=== PATIENT | male | born 1970 | race American Indian/Alaskan Native ===

== ENCOUNTER 2016-09-16 17:11 | Observation (INO) | payer BC, OTHER ==
[2016-09-16 17:20] VITALS: BMI 23.5
[2016-09-16] MEDS ORDERED: Vancomycin 1gm in NS 250ml 1 GM/250 ML BAG IVPB STA (17:58)
[2016-09-16] MEDS ORDERED: Ampicillin/Sulbactam 3 GM in Sodium Chloride 0.9% 100 ML IVPB STA (17:58)
--- NOTE | 2016-09-16 18:03 | ED PDOC ---
Arrival/HPI - General Historian: Patient - History of Present Illness Time/Duration: < month Symptom Onset: Gradual Symptom Course: Unchanged Severity Level: Mild Activities at Onset: Rest Context: Home <Amy Bob - Last Filed: 09/16/16 19:16> - History of Present Illness Time/Duration: < month Symptom Onset: Gradual Symptom Course: Unchanged Severity Level: Mild Activities at Onset: Rest Context: Home <Ondina Skinner - Last Filed: 09/16/16 19:42> - General Chief Complaint: Lower Extremity Problem/Injury Time Seen by Provider: 09/16/16 17:36 - History of Present Illness Narrative History of Present Illness (Text): 09/16/16 18:00 This is a 46Y M with no significant PMH here for R toe infection x 3 weeks. The infection is located in the web between the 4th and 5th toe. The pain radiates up to his foot. He was seeing Dr. Subramanian for his infection. She gave him Bactrim for 1 week without any relief. Patient saw her today and she sent him to the ED for evaluation for osteomyelitis. The patient has some chills, but denies fever, CP, SOB, n/v/d, numbness/tingling. (Amy Bob) Past Medical History - Provider Review Nursing Documentation Reviewed: Yes - Past History Past History: No Previous - Tetanus Immunization Tetanus Immunization: Unknown - Past Medical History Past Medical History: No Previous - Psychiatric Hx Depression: No Hx Emotional Abuse: No Hx Physical Abuse: No Hx Substance Use: Yes (marijuana) - Past Surgical History Past Surgical History: No Previous - Suicidal Assessment Feels Threatened In Home Enviroment: No <Amy Bob - Last Filed: 09/16/16 19:16> Family/Social History - Physician Review Nursing Documentation Reviewed: Yes Family/Social History: No Known Family HX Smoking Status: Light Smoker < 10 Cigarettes Daily Hx Alcohol Use: Yes Frequency of alcohol use: Daily Hx Substance Use: Yes (marijuana) <Amy Bob - Last Filed: 09/16/16 19:16> Allergies/Home Meds <Amy Bob - Last Filed: 09/16/16 19:16> <Ondina Skinner - Last Filed: 09/16/16 19:42> Allergies/Adverse Reactions: Allergies No Known Allergies Allergy (Verified 09/16/16 17:20) Home Medications: Home Meds Medication Instructions Recorded Confirmed No Known Home Med 12/28/12 09/16/16 Review of Systems - Physician Review All systems were reviewed & negative as marked: Yes - Review of Systems Constitutional: Other (chills). absent: Fevers Eyes: Normal. absent: Vision Changes ENT: Normal. absent: Hearing Changes Respiratory: Normal. absent: SOB, Cough Cardiovascular: Normal. absent: Chest Pain, Palpitations Gastrointestinal: Normal. absent: Abdominal Pain, Stool Changes, Diarrhea, Nausea Genitourinary Male: Normal. absent: Dysuria, Frequency Musculoskeletal: Other (R foot pain) Skin: Skin Lesions (R 4th/5th toe web). absent: Rash, Pruritis Neurological: absent: Headache, Dizziness Endocrine: Normal Hemo/Lymphatic: Normal Psychiatric: Normal. absent: Anxiety, Depression <Amy Bob - Last Filed: 09/16/16 19:16> Physical Exam Vital Signs Reviewed: Yes Temperature: Afebrile Blood Pressure: Normal Pulse: Regular Respiratory Rate: Normal Appearance: Positive for: Well-Appearing, Non-Toxic, Comfortable Pain Distress: None Mental Status: Positive for: Alert and Oriented X 3 - Systems Exam Head: Present: Atraumatic, Normocephalic Conjunctiva: Present: Normal Mouth: Present: Moist Mucous Membranes Neck: Present: Normal Range of Motion Respiratory/Chest: Present: Clear to Auscultation, Good Air Exchange. No: Respiratory Distress, Accessory Muscle Use Cardiovascular: Present: Regular Rate and Rhythm, Normal S1, S2. No: Murmurs Abdomen: Present: Normal Bowel Sounds. No: Tenderness, Distention, Peritoneal Signs Back: Present: Normal Inspection Upper Extremity: Present: Normal Inspection. No: Cyanosis, Edema Lower Extremity: Present: NORMAL PULSES, Deformity (ulceration between 4th and 5th toe with white discharge), Capillary Refill < 2 s. No: Edema, CALF TENDERNESS, Swelling Neurological: Present: GCS=15, CN II-XII Intact, Speech Normal Skin: Present: Warm, Dry, Other (ulceration between 4th and 5th toe with white discharge). No: Rashes Psychiatric: Present: Alert, Oriented x 3, Normal Insight, Normal Concentration <Amy Bob - Last Filed: 09/16/16 19:16> <Ondina Skinner - Last Filed: 09/16/16 19:42> Vital Signs Temp Pulse Resp BP Pulse Ox 09/16/16 17:20 98.3 F 80 16 122/78 97 Medical Decision Making Re-evaluation Time: 19:16 Reassessment Condition: Unchanged - Lab Interpretations I have reviewed the lab results: Yes Interpretation: All labs normal <Amy Bob - Last Filed: 09/16/16 19:16> <Ondina Skinner - Last Filed: 09/16/16 19:42> ED Course and Treatment: 09/16/16 18:10 Impression: This is a 46Y M with no PMH here for R toe ulceration between 4th and 5th toe x 3 weeks. Infection was not relieved with oral antibiotics. Patient was sent in by PMD to rule out osteomyelitis and for IV antibiotics. Plan: -- CBC, CMP, wound culture, blood culture -- MRI of R foot --Reassess Prior Visits: Notes and results from previous visits were reviewed. Progress Note: Spoke with PMD, Dr. Benitez who accepts the patient into her service. She requests a podiatry and ID consult. Admit Patient: Re-evaluation. Patient feels the same. Discussed results and plan to admit with patient who expresses understanding. All questions answered and there is agreement with the plan. (Amy Bob) In agreement with resident note, which includes further HPI details. Patient was seen and evaluated with resident, came up with plan and treatment together. 09/16/16 19:41 Patient with ulcerated wound in between 4th and 5th toes that is nonhealing despite oral abx and now foot pain is worsening along 4th/5th MT - concern for osteomyelitis - will need to be observed on iv antibiotics with podiatry consult and MRI to r/o osteomyelitis. Discussed with Dr. Benitez. 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 JAY has examined the patient and agrees with the treatment plan. <Ondina Skinner - Last Filed: 09/16/16 19:42> Disposition/Present on Arrival - Present on Arrival Any Indicators Present on Arrival: No History of DVT/PE: No History of Uncontrolled Diabetes: No Urinary Catheter: No History of Decub. Ulcer: No History Surgical Site Infection Following: None - Disposition Have Diagnosis and Disposition been Completed?: Yes Disposition Time: 18:14 Patient Plan: Admission <Amy Bob - Last Filed: 09/16/16 19:16> <Ondina Skinner - Last Filed: 09/16/16 19:42> - Disposition Diagnosis: Cellulitis Disposition: HOSPITALIZED Patient Problems: Current Active Problems Problem Status Onset Cellulitis Acute Condition: FAIR
[2016-09-16 18:51] LABS: HEMATOCRIT 39.6 % (42.0-52.0); MEAN CELL VOLUME 88.8 fL (80.0-105.0); MEAN CORPUSCULAR HEMOGLOBIN 31.8 pg (25.0-35.0); MEAN CORPUSCULAR HGB CONC 35.9 g/dl (31.0-37.0); MEAN PLATELET VOLUME 9.4 fl (7.0-11.0); RED CELL DISTRIBUTION WIDTH 13.9 % (11.5-14.5); WHITE BLOOD COUNT 6.8 10^3/ul (4.5-11.0)
[2016-09-16 19:05] LABS: ALB/GLOB RATIO 1.4 (1.1-1.8); ALKALINE PHOSPHATASE 55 U/L (38-133); ALT/SGPT 24 U/L (7-56); AST/SGOT 36 U/L (15-59); BILIRUBIN,TOTAL 0.5 mg/dL (0.2-1.3); BLOOD UREA NITROGEN 11 mg/dL (7-21); CALCIUM 9.4 mg/dL (8.4-10.5); CARBON DIOXIDE 28 mmol/L (21-33); CHLORIDE 103 mmol/L (98-107); GFR AFRICAN-AMERICAN > 60; GLUCOSE,RANDOM 87 mg/dL (70-110); SODIUM 139 mmol/L (132-148); TOTAL PROTEIN 7.1 g/dL (5.8-8.3)
[2016-09-16] MEDS ORDERED: Pneumococcal 23-Valent Vaccine IM ONE (21:32)
[2016-09-16] MEDS ORDERED: HYDROmorphone 0.5 mg/0.5 ml ISec IVP PRN (22:20)
[2016-09-17] MEDS ORDERED: Ampicillin/Sulbactam 3 GM in Sodium Chloride 0.9% 100 ML IVPB SCH
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
[2016-09-17] MEDS: Piperacillin/Tazobact 3.375 gm 100 ML IVPB SCH ×4 (05:05→23:03)
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
--- NOTE | 2016-09-17 11:04 | RAD ---
PROCEDURE: Right foot dated 09/17/2016 HISTORY: Right foot infection . Technologist notation indicates infection between 4th and 5th digits. COMPARISON: No prior study available for comparison FINDINGS: BONES: The current study reveals no evidence of acute displaced fracture nor dislocation. The osseous structures intact of. No definitive cortical destructive changes. Questionable tiny amount of air within the soft tissues between the 4th and 5th toes. No definitive radiopaque foreign bodies. . JOINTS: Mild hallux valgus deformity with overgrowth of the head of the 1st metatarsal and mild DJD 1st MTP joint. . There is prominence of the overlying medial soft tissues at the level of the metatarsal head MCP joint. Slight hammertoe deformity of the 4th and to a lesser degree 5th digits. SOFT TISSUES: Normal. OTHER FINDINGS: None. IMPRESSION: Questionable tiny amount of air within the soft tissues between the 4th and 5th toes. No definitive radiopaque foreign bodies.
[2016-09-17] MEDS: CICLOPIROX 0.77% TOP SCH ×2 (11:09→17:37)
[2016-09-17] MEDS: Nystatin 100,000 Units/gm Topical Pow(15 gm) TOP SCH ×2 (11:10→17:37)
--- NOTE | 2016-09-17 14:18 | CP.PCM.PN ---
Subjective - Date & Time of Evaluation Date of Evaluation: 09/17/16 Time of Evaluation: 12:45 - Subjective Subjective: Infectious Disease Follow Up: September 17, 2016 46 yo male with with no significant PMHx. Presenting with Right toe infection that was treated with Bactrim DS for 1 week without improvement. The patient was found to have the ulcer 3 weeks ago with radiation of pain up the right foot. He was sent [place] [facility] [place] especially for osteomyelitis. Podiatry has evaluated the patient and will debride at bedside later today. Objective - Vital Signs/Intake and Output Vital Signs (last 24 hours): Temp Pulse Resp BP Pulse Ox 98 F 63 18 121/76 100 09/17/16 07:55 09/17/16 07:55 09/17/16 07:55 09/17/16 07:55 09/17/16 07:55 Intake and Output: 09/17/16 09/17/16 06:59 18:59 Intake Total 120 Balance 120 - Medications Medications: Current Medications Ciclopirox Olamine (Loprox 0.77%) 0 gm TOP BID [facility] Last Admin: 09/17/16 11:09 Dose: 1 applic Famotidine (Pepcid) 40 mg PO HS YANG Hydromorphone HCl (Dilaudid) 0.5 mg IVP Q4H PRN PRN Reason: Pain, Mild (1-3) Piperacillin Sod/Tazobactam Sod (Zosyn 3.375 In Ns 100ml) 100 mls @ 200 mls/hr IVPB Q6 YANG PRN Reason: Protocol Last Admin: 09/17/16 11:10 Dose: 200 mls/hr Nystatin (Nystop Topical Powder) 0 gm TOP BID [facility] Last Admin: 09/17/16 11:10 Dose: 1 applic - Labs Labs: 09/16/16 18:30 09/16/16 18:30 - Constitutional Appears: Non-toxic, No Acute Distress, Chronically Ill - Head Exam Head Exam: ATRAUMATIC, NORMOCEPHALIC - Eye Exam Eye Exam: EOMI, PERRL Pupil Exam: NORMAL ACCOMODATION, PERRL - ENT Exam ENT Exam: Mucous Membranes Moist, Normal External Ear Exam, TM's Normal Bilaterally - Neck Exam Neck Exam: Full ROM, Normal Inspection - Respiratory Exam Respiratory Exam: Clear to Ausculation Bilateral, NORMAL BREATHING PATTERN. absent: Rales, Rhonchi, Wheezes - Cardiovascular Exam Cardiovascular Exam: REGULAR RHYTHM, RRR, +S1, +S2 - GI/Abdominal Exam GI & Abdominal Exam: Soft, Normal Bowel Sounds. absent: Distended, Tenderness - Extremities Exam Extremities Exam: Full ROM Additional comments: Full thickness ulceration of the right 4th interspace. No drainage. - Neurological Exam Neurological Exam: Alert, Awake, CN II-XII Intact, Oriented x3 - Psychiatric Exam Psychiatric exam: Normal Affect, Normal Mood - Skin Skin Exam: Intact, Normal Color Assessment and Plan - Assessment and Plan (Free Text) Assessment: 46 yo AA male with 3 week history of erythema and pain to the space between the right foot 4th and 5th toes starting from a Dr. Mejia's corn removed bandage. He was given Bactrim DS for one week with no improvement. Supportive care. Wound cultures. Currently on Unasyn for treatment. Would utilize Zosyn for Pseudomonas coverage given site of infection. Local wound culture. ESR in AM. For X-ray and MRI in AM. Supportive care. Noted addition of loprox cream and nyastatin powder to affected areas. X-ray foot shows no collection or fracture. Debrided by podiatry today. Continue with zosyn for now. Cultures pending. Thank you for allowing me to participate in the care of the patient, we will follow with you.
[2016-09-17 16:45] VITALS: PULSE 61; TEMP 98.1
[2016-09-18] MEDS: Piperacillin/Tazobact 3.375 gm 100 ML IVPB SCH (05:31)
--- NOTE | 2016-09-18 06:54 | HP ---
CHIEF COMPLAINT: Pain in the right foot. HISTORY OF PRESENT ILLNESS: The patient is a 46-year-old male with 3 weeks , and pain in the space between the right foot fourth and fifth toes, starting from Dr. Mejia's corn removal bandage. Actually, he went to [facility] ER. They gave him Bactrim DS for 1 week with no improvement. Then, he came in my office. Area looks like collection os pus and not healthy. Then I sent the patient to [facility] Emergency Room for wound culture and maybe patient needs IV antibiotics. The patient does not have any past medical history. The foot has pain. According to him, pain is starting in the toes and moving up. It radiates to the foot and then to the leg , rule out osteomyelitis. The patient has some chills, but denies fever, chest pain, shortness of breath. No nausea, vomiting, diarrhea. No headache, no dizziness. PAST MEDICAL HISTORY: History of marijuana abuse. FAMILY HISTORY: Father and mother, noncontributory. HABITS: Alcohol yes, marijuana yes, smoking light, less than 10 cigarettes. ALLERGIES: The patient is not allergic with any medication. HOME MEDICATIONS: Bactrim-DS, finished 1 course. REVIEW OF SYSTEMS: The patient seen and examined on the bedside in his room. No nausea, vomiting, or diarrhea. No hematuria or hematochezia. No headache, no dizziness. No anxiety, no depression. No fever. Yes has chills. No vision changes. No hearing changes. No palpitation or chest pain. Denied nausea, vomiting, or diarrhea. No dysuria. Right foot has pain. PHYSICAL EXAMINATION: VITAL SIGNS: Temperature 98.3, pulse 80, respiratory rate 15, blood pressure 122/78, and pulse oximetry 97. HEENT: Head normocephalic, atraumatic. Eyes: PERRLA. Extraocular muscles intact. Conjunctivae clear. Nose patent. Mucous membranes moist. NECK: Supple. No carotid bruit, JVD or thyromegaly. CHEST: Bilaterally symmetrical. HEART: S1, S2 positive. LUNGS: Clear to auscultation. ABDOMEN: Soft. Bowel sounds positive. No organomegaly. EXTREMITIES: No edema, no cyanosis. NEUROLOGIC: The patient is awake, alert, moving all 4 extremities. No focal deficit. EXTREMITIES: Lower extremities normal pulses. Ulceration between the fourth and fifth toes with white discharge. No calf tenderness. LABORATORY DATA: White blood cells 6.8, hemoglobin 14.2, hematocrit 39.6, platelets 393. Sodium 138, potassium 4.0, BUN 11, creatinine 0.9, glucose 87, AST 36, ALT 24. ASSESSMENT AND PLAN: The patient is a 46-year-old male without any significant past medical history, has infection of the fourth interspace of the right foot. The patient is seen by Dr. Harris and Dr. Dillon. Chart reviewed. Right foot x- ray and MRI ordered, but MRI cancelled. Nystatin powder and Loprox cream ordered to be applied to the right foot fourth interspace b.i.d. Hyperkeratotic of the right fourth interspace debridement with cultures. The patient tolerated procedure very well. Procedure was done by Dr. Dillon. Advised patient to obtain shoes with wider toe box as this will relieve the pressure and minimize the callus formation of interspace, stable by podiatry, but podiatry will continue followup. The patient failed outpatient treatment with Bactrim-DS for 1 week. Subclinical , that is why he does not have fever and not white blood cells. Continue Unasyn for the treatment. Dr. Steven Holcomb for pseudomonas coverage given site of infection. Supportive care, nicotine patch started. The patient is a smoker. Urged to complete the IV antibiotics. Today, he was planning to go home against medical advice. Education done. We will see tomorrow and we will plan according to them. Gastrointestinal and deep vein thrombosis prophylaxis. Kady Benitez MD cc: [id number] TT: 09/18/2016 06:54:38 osmel PEDRAZA
[2016-09-18 07:18] LABS: CHOLESTEROL 158 mg/dL (130-200)
[2016-09-18 07:38] VITALS: BP 114/74; RESP 20; O2SAT 98
--- NOTE | 2016-09-18 09:58 | CP.PCM.PN ---
<Morelia French - Last Filed: 09/18/16 09:52> Subjective - Date & Time of Evaluation Date of Evaluation: 09/18/16 Time of Evaluation: 09:00 - Subjective Subjective: 46 yo male patient w/ unremarkable pmhx, seen at the bedside this morning with Dr. Dillon concerning an inter-digital corn to his right foot. Edison was debrided yesterday and pt says pain is releived to the area. Pt has no new pedal complaints denies recent f/c/cp/sob/n/v. Objective - Vital Signs/Intake and Output Vital Signs (last 24 hours): Temp Pulse Resp BP Pulse Ox 98.1 F 61 20 114/74 98 09/18/16 07:30 09/18/16 07:30 09/18/16 07:30 09/18/16 07:30 09/18/16 07:30 Intake and Output: 09/18/16 09/18/16 06:59 18:59 Intake Total 1140 Balance 1140 - Medications Medications: Current Medications Ciclopirox Olamine (Loprox 0.77%) 0 gm TOP BID [facility] Last Admin: 09/17/16 17:37 Dose: 1 applic Famotidine (Pepcid) 40 mg PO HS [facility] Last Admin: 09/17/16 21:43 Dose: 40 mg Hydromorphone HCl (Dilaudid) 0.5 mg IVP Q4H PRN PRN Reason: Pain, Mild (1-3) Piperacillin Sod/Tazobactam Sod (Zosyn 3.375 In Ns 100ml) 100 mls @ 200 mls/hr IVPB Q6 YANG PRN Reason: Protocol Last Admin: 09/18/16 05:31 Dose: 200 mls/hr Nicotine (Nicoderm Cq) 1 patch TD DAILY [facility] Last Admin: 09/17/16 17:36 Dose: 1 patch Nystatin (Nystop Topical Powder) 0 gm TOP BID [facility] Last Admin: 09/17/16 17:37 Dose: 1 applic - Constitutional Appears: Well, Non-toxic, No Acute Distress - Extremities Exam Additional comments: Right lower extremity exam: VASC- DP/PT pulses are strongly palpable, skin temp runs warm to warm, cap refill < 3 sec to all digits, no pedal edema noted NEURO- pedal sensation is grossly intact DERM- there is a full thickness ulceration noted to dorsal-distal aspect of the right 4th interspace (measures 0.4x0.5x0.3) with mixed fibro-granular base, there is no tracking, there is no purulence or drainage on compression, no increase in callor, no surrounding erythema, no ascending cellulitis, no malodor , there is peeling of skin noted just proximal to the ulceration site, there is callus noted sub-met 5 and sub-met 1 with thickened hardened skin noted ORTHO- tenderness on palpation of ulceration site 4th interspace, tenderness on palpation of callus sub-met 1 and sub-met 5, adductovarus deformity noted of 5th digit - Neurological Exam Neurological Exam: Alert, Awake, Oriented x3 Assessment and Plan - Assessment and Plan (Free Text) Assessment: 46 yo male patient with unremarkable pmhx with resolving infection of 4th interspace right foot. Plan: -Pt S&E at bedside w/ attending Dr. Dillon present. -Chart, labs and vital reviewed: afebrile, no leukocytosis -Nyastatin powder, Betatdine ointment, loprox cream applied to right foot 4th interspace, cotton ball spacer applied interdigitally to right 4th webspace. Pt instructed to continue this combination to the affected site daily once discharged home. Advised pt to obtain shoes with wider toe box, as this will relieve pressure and minimize callus formation of interspace -Stable from podiatry standpoint for discharge home. To follow up with Dr. Dillon as needed on outpatient basis. <Monica Dillon - Last Filed: 09/21/16 16:48> Objective - Vital Signs/Intake and Output Vital Signs (last 24 hours): Temp Pulse Resp BP Pulse Ox 98.1 F 61 20 114/74 98 09/18/16 07:30 09/18/16 07:30 09/18/16 07:30 09/18/16 07:30 09/18/16 07:30 - Labs Labs: 09/16/16 18:30 09/16/16 18:30 Attending/Attestation - Attestation I have personally seen and examined this patient.: Yes I have fully participated in the care of the patient.: Yes I have reviewed all pertinent clinical information, including history, physical exam and plan: Yes
[2016-09-18] MEDS: CICLOPIROX 0.77% TOP SCH (10:00)
--- NOTE | 2016-09-18 13:28 | CP.PCM.PN ---
Subjective - Date & Time of Evaluation Date of Evaluation: 09/18/16 Time of Evaluation: 12:00 - Subjective Subjective: Infectious Disease Follow Up: September 18, 2016 46 yo male with with no significant PMHx. Presenting with Right toe infection that was treated with Bactrim DS for 1 week without improvement. The patient was found to have the ulcer 3 weeks ago with radiation of pain up the right foot. He was sent to [facility] for evaluation especially for osteomyelitis. Osteomyelitis unlikely. Deep ulceration with superficial cellulitis. On Zosyn initially. Objective - Vital Signs/Intake and Output Vital Signs (last 24 hours): Temp Pulse Resp BP Pulse Ox 98.1 F 61 20 114/74 98 09/18/16 07:30 09/18/16 07:30 09/18/16 07:30 09/18/16 07:30 09/18/16 07:30 Intake and Output: 09/18/16 09/18/16 06:59 18:59 Intake Total 1140 Balance 1140 - Constitutional Appears: Non-toxic, No Acute Distress - Head Exam Head Exam: ATRAUMATIC, NORMOCEPHALIC - Eye Exam Eye Exam: EOMI, PERRL Pupil Exam: NORMAL ACCOMODATION, PERRL - ENT Exam ENT Exam: Mucous Membranes Moist, Normal External Ear Exam, TM's Normal Bilaterally - Neck Exam Neck Exam: Full ROM, Normal Inspection - Respiratory Exam Respiratory Exam: Clear to Ausculation Bilateral, NORMAL BREATHING PATTERN. absent: Rales, Rhonchi, Wheezes - Cardiovascular Exam Cardiovascular Exam: REGULAR RHYTHM, RRR, +S1, +S2 - GI/Abdominal Exam GI & Abdominal Exam: Soft, Tenderness, Normal Bowel Sounds. absent: Distended - Extremities Exam Extremities Exam: Full ROM Additional comments: Full thickness ulceration of the right 4th interspace now debrided. No drainage. - Neurological Exam Neurological Exam: Alert, Awake, CN II-XII Intact, Oriented x3 - Psychiatric Exam Psychiatric exam: Normal Affect, Normal Mood - Skin Skin Exam: Intact, Normal Color Assessment and Plan - Assessment and Plan (Free Text) Assessment: 46 yo AA male with 3 week history of erythema and pain to the space between the right foot 4th and 5th toes starting from a Dr. Mejia's corn removed bandage. He was given Bactrim DS for one week with no improvement. Supportive care. Wound cultures. Currently on Unasyn for treatment. Would utilize Zosyn for Pseudomonas coverage given site of infection. Local wound culture. ESR in AM. For X-ray and MRI in AM. Supportive care. Noted addition of loprox cream and nyastatin powder to affected areas. X-ray foot shows no collection or fracture. Debrided by podiatry yesterday. Continue with zosyn for now. Cultures negative. Can consider Keflex 500mg TID x 10 days when ready for discharge. Thank you for allowing me to participate in the care of the patient, we will follow with you.
--- NOTE | 2016-11-06 08:31 | DS ---
CHIEF COMPLAINT: Pain in the right foot. HISTORY OF PRESENT ILLNESS: Mr. Payam Cho is a 46-year-old male came with 3 weeks of pain in the right foot, especially space between the fourth and fifth toes of the right foot, started from Dr. Mejia's corn removal bandage. Actually, he went to [facility] ER and they gave him Bactrim DS for 1 week with no improvement. Then, he came to my office. Area looks like collection of pus. I sent patient to [facility] for IV antibiotics. Patient does not have any past medical history. We assumed the patient seen by ID, Dr. Harris, podiatry Dr. Dillon feels better, cleared by Dr. Harris and Dr. Dillon and discharged home with antibiotics and follow up with ID and podiatry. PAST MEDICAL HISTORY: Not significant except marijuana abuse. FAMILY HISTORY: Noncontributory. HABITS: Alcohol, yes. Marijuana yes. Smoking light, less than 10 cigarettes. ALLERGIES: THE PATIENT IS NOT ALLERGIC TO ANY MEDICATIONS. HOME MEDICATIONS: Bactrim DS, finished 1 course. REVIEW OF SYSTEMS: The patient is examined at the bedside, he looks comfortable. No nausea, vomiting, or diarrhea. Foot pain is better. No headache or dizziness. No chest pain. No shortness of breath. No hematuria or hematochezia. PHYSICAL EXAMINATION: VITAL SIGNS: Temperature 98.1, pulse 51, blood pressure 114/74, and respiratory rate 20. HEENT: Head is normocephalic and atraumatic. Eyes: PERRLA. Extraocular muscles intact. Conjunctivae clear. Nose patent. Mucous membrane moist. NECK: Supple. No carotid bruits. No JVD or thyromegaly. CHEST: Bilaterally symmetrical. HEART: S1 and S2 positive. LUNGS: Clear to auscultation. ABDOMEN: Soft. Bowel sounds present. No organomegaly. EXTREMITIES: No edema. No cyanosis. NEUROLOGIC: The patient is awake and alert. Moving all 4 extremities. No focal deficits. LABORATORY DATA: White blood cell is 6.8, hemoglobin 14.2, hematocrit 39.6, and platelets 393. Sodium 139, potassium 4.0, BUN 11, and creatinine 0.9. Hemoglobin A1c is 5.8. Liver function tests within normal limits. TSH is within normal limits. ASSESSMENT AND PLAN: Mr. Payam Cho is a 46-year-old male with 3 weeks' history of erythema and pain in the space between the right foot fourth and fifth toes, started with Dr. Mejia's corn removal bandage, was given Bactrim DS for 1 week in [facility] with no improvement. Wound cultures done. used Zosyn for pseudomonal coverage , local wound care was given by Dr. Dillon. Nystatin powder and Loprox cream was given on the affected area. X-ray of the foot shows no collection or fracture, debridement done by the podiatry. The patient was discharged on 09/18/2016 with Keflex for 10 days. Patient's plan was to continue treatment, IV antibiotics, MRI of the foot, follow up with ID and podiatry, but patient left against medical advice, but we still gave him Keflex 500 mg t.i.d. 30 capsule. Still the patient advised to follow with primary care physician, infectious disease, and podiatry for cellulitis of the foot. Education was done, but still patient left against medical advice. Kady Benitez MD MTDD
== END 2016-09-18 13:08 | disposition home or self-care (01) ==
LOC: ED 17:11 → ERH 18:05 → 5RNO 20:56 → INTOOBSV 22:03 → OBSVTOIN 22:03
PROVIDERS: ADMIT Internal Medicine; ATTEND Internal Medicine
DX: L03.031 Cellulitis of right toe (principal); F17.210 Nicotine dependence, cigarettes, uncomplicated; F12.90 Cannabis use, unspecified, uncomplicated; L97.519 Non-pressure chronic ulcer of other part of right foot with unspecified severity; R40.2412 Glasgow coma scale score 13-15, at arrival to emergency department; Z90.49 Acquired absence of other specified parts of digestive tract; L84 Corns and callosities; B96.20 Unspecified Escherichia coli [E. coli] as the cause of diseases classified elsewhere; B96.5 Pseudomonas (aeruginosa) (mallei) (pseudomallei) as the cause of diseases classified elsewhere; B95.7 Other staphylococcus as the cause of diseases classified elsewhere
CPT/HCPCS: 36415; 73630; 80053; 80061; 83036; 84443; 85027; 85651; 87040; 87070; 87181; 97597; 99285; G0378; J0295; J2543